=== PATIENT | female | born 1950 | race Caucasian/White ===

== ENCOUNTER 2022-08-19 13:41 | Outpatient (CLI) | payer MEDICARE | END 2022-08-19 13:42 | disposition home or self-care (01) | LOC: CSHRAD 13:41 | PROVIDERS: ATTEND Family Medicine | DX: M79.642 Pain in left hand (principal) ==

== ENCOUNTER 2022-10-13 10:25 | Outpatient (CLI) | payer MEDICARE | END 2022-10-13 10:26 | disposition home or self-care (01) | LOC: CSHMAMMO 10:25 | PROVIDERS: ATTEND Family Medicine | DX: Z12.31 Encounter for screening mammogram for malignant neoplasm of breast (principal) | CPT/HCPCS: 77063; 77067 ==